=== PATIENT | male | born 1985 | race Caucasian/White ===

== ENCOUNTER 2016-07-24 17:32 | Emergency (ER) | payer SELFPAY ==
[2016-07-24 18:01] VITALS: TEMP 98.2; BMI 28.8
[2016-07-24 18:14] LABS: AUTOMATED EOSINOPHIL 2.5 % (0-5); AUTOMATED LYMPH 35.5 % (17-44); MPV 8.7 fL (7.4-10.4)
[2016-07-24 18:20] LABS: RBC/URINE 0-2 (0-2); WBC/URINE 0-2 (0-2)
[2016-07-24 18:23] LABS: LEUKOCYTES/URINE NEG (NEGATIVE); NITRITE/URINE NEG (NEGATIVE); URINE OCCULT BLOOD NEG (NEG/TRACE)
[2016-07-24 18:25] LABS: BLOOD UREA NITROGEN 15 MG/DL (9-20); CALCULATED OSMOLALITY 275 MOs/Kg (270-290); CHLORIDE 104 mEq/L (98-107); GLUCOSE 108 MG/DL (70-99); SODIUM LEVEL 142 mEq/L (137-146)
[2016-07-24] MEDS ORDERED: MORPHINE 4 MG/ML INJECTION IV ONE (19:38)
[2016-07-24] MEDS ORDERED: ONDANSETRON HCL 4 MG/2 ML VIAL IV ONE (19:38)
[2016-07-24] MEDS ORDERED: NS 1,000 ML IV ONE (19:39)
--- NOTE | 2016-07-24 20:25 | DIRPT ---
CLINICAL DATA: Right upper quadrant pain for several weeks EXAM: US ABDOMEN LIMITED - RIGHT UPPER QUADRANT COMPARISON: 01/19/2016 FINDINGS: Gallbladder: No gallstones or wall thickening visualized. No sonographic Lynch sign noted by retirement assistant. Common bile duct: Diameter: 3 mm Liver: Diffusely increased in echogenicity consistent with fatty infiltration. IMPRESSION: Fatty liver. No other focal abnormality is seen. Electronically Signed By: Marvel Stevenson M.D. On: 07/24/2016 20:22
--- NOTE | 2016-07-24 20:38 | EDPRACDOC ---
- General Information Chief Complaint: Abdominal Pain Stated Complaint: ABDOMINAL PAIN, NAUSEA Time Seen by Provider: 07/24/16 19:29 Information Source: Patient Mode Of Arrival: Car Home Medications: Home Medications Ondansetron [Zofran Odt] 4 mg PO Q6H PRN #20 tab.rapdis 07/24/16 Oxycodone Immediate Release [Oxycodone Immediate Release (OxyIR)] 5 mg PO Q6H PRN #20 tab 07/24/16 Allergies/Adverse Reactions: Allergies Allergy/AdvReac Type Severity Reaction Status Date / Time No Known Allergies Allergy Verified 07/24/16 18:01 - History of Present Illness Onset: 2 WEEKS HPI: PT PRESENTS WITH 2 WEEK HISTORY OF EPIGASTRIC PAIN THAT RADIATES TO THE RUQ AND THROUGH TO THE BACK AND UP TO THE RIGHT SHOULDER. PT STATES HE HAS HAD NAUSEA FOR THE PAST YEAR. Pain Location: Reports: Epigastric, RUQ Pain Context: Reports: Spontaneous Pain Severity: Mild Pain Quality: Reports: Sharp, Stabbing Pain Radiation: Reports: No Radiation Adult Abdominal History: Denies: Abdominal Surgery, Urolithiasis, Bowel Obstruction, Similar Pain (dx) Modifying Factors: improves with: Nothing Associated Signs & Symptoms: Reports: Nausea Oral Intake: Normal Urinary Output: Normal ED Past Medical History - History Reviewed Yes Nurses notes reviewed and agree except as marked - Patient Medical History Cardiac History: Reports: Hypertension (NOT ON MEDS) GI/ History: Reports: Kidney Stones Musculoskeletal History: Reports: Arthritis (RT LEG) Psychological History: Denies: Depression Systemic History: Denies: Anemia - Family Medical History Reports: Hypertension (DAD), Diabetes (DAD, GRANDPARENTS). Denies: Cancer, Stroke, Cardiac Disorders - Social Medical History Smoking Status: Never smoker EDM Review of Systems - Review of Systems ROS Negative Except as Marked: Yes All systems reviewed and were negative except as marked - Physical Exam Constitutional: Alert (Awake), No apparent distress Oriented to: Time, Person, Place Last recorded Vital Signs: Last Vital Signs Temp 98.2 F 07/24/16 17:58 Pulse 82 07/24/16 17:58 Resp 20 07/24/16 17:58 BP 158/97 07/24/16 17:58 Pulse Ox 97 07/24/16 17:58 Oxygen Pulse Oxygen Saturation 97 O2 Device Room Air Oxygen Flow Rate Fraction of Inspired Oxygen ( FIO2) - HEENT Head: Normal ( normocephalic) Eye Exam: Normal (PERRL, EOMI, Sclera white) Oropharynx: Normal (Pharynx:Moist without exudate,Gums-no swelling) Nose: No Symptoms Reported (septum midline) Neck: Normal (FROM, trachea at midline) - Respiratory/Cardiovascular Respiratory: Normal - CTA (BBS clear to auscultation without adventitious sounds ) Cardiovascular: Normal (RRR without murmur, gallop or rub) - GI Auscultation: Normal (NABS) Palpation: Normal (Soft,No rebound or guarding, non distended) Tenderness: Mild, RUQ, Epigastric Lynch's Sign: Negative Rectal Exam: Deferred - Musculoskeletal Back: Normal (Non-Tender) Extremities: Normal (Normal tone, Pulses 2+ No cyanosis or edema, FROM) - Integumentary Skin: Normal, Warm, Dry Lymphatics: Normal (no adenopathy) - Neurologic Memory Impaired: Normal Motor Function: Normal (Normal tone, Pulses 2+ No cyanosis or edema, FROM) Cranial Nerve: Normal (CN II-X11 intact sensation, strength 5/5) Cerebellar: Normal Mood Description: Normal Perception: Normal - Differential Diagnosis Cholecystitis, Cholelithiasis - Results All Results Reviewed and Normal except as Highlighted below: Yes 07/24/16 17:59 07/24/16 17:59 WBC 8.5 xk/uL (3.8-10.8) 07/24/16 17:59 RBC 6.02 xM/uL (4.70-6.10) 07/24/16 17:59 Hgb 16.1 g/dL (14.0-18.0) 07/24/16 17:59 Hct 46.3 % (42-52) 07/24/16 17:59 MCV 77 fL (80-94) L 07/24/16 17:59 MCH 26.8 pg (27-32) L 07/24/16 17:59 MCHC 34.9 g/dl (33-36) 07/24/16 17:59 RDW 13.4 % (11.5-14.5) 07/24/16 17:59 Plt Count 222 xk/uL (130-400) 07/24/16 17:59 MPV 8.7 fL (7.4-10.4) 07/24/16 17:59 Neut % (Auto) 55.0 % (45-76) 07/24/16 17:59 Lymph % (Auto) 35.5 % (17-44) 07/24/16 17:59 [place] % (Auto) 6.0 % (3-10) 07/24/16 17:59 Eos % (Auto) 2.5 % (0-5) 07/24/16 17:59 Baso % (Auto) 1.0 % (0-2) 07/24/16 17:59 Absolute Neuts (auto) 4.68 xk/uL (1.7-8.2) 07/24/16 17:59 Absolute Lymphs (auto) 2.98 xk/uL (0.65-4.75) 07/24/16 17:59 Sodium 142 mEq/L (137-146) 07/24/16 17:59 Potassium 4.6 mEq/L (3.5-5.1) 07/24/16 17:59 Chloride 104 mEq/L (98-107) 07/24/16 17:59 Carbon Dioxide 26 mMOL/L (22-33) 07/24/16 17:59 Anion Gap 17 mEq/L (8-16) H 07/24/16 17:59 BUN 15 MG/DL (9-20) 07/24/16 17:59 Creatinine 0.90 MG/DL (0.66-1.25) 07/24/16 17:59 Estimated GFR (MDRD) > 60 mL/min (>=60) 07/24/16 17:59 Glucose 108 MG/DL (70-99) H 07/24/16 17:59 Calculated Osmolality 275 MOs/Kg (270-290) 07/24/16 17:59 Calcium 9.0 MG/DL (8.4-10.2) 07/24/16 17:59 Total Bilirubin 0.8 MG/DL (0.2-1.3) 07/24/16 17:59 AST 38 IU/L (17-59) 07/24/16 17:59 ALT 41 IU/L (21-72) 07/24/16 17:59 Alkaline Phosphatase 88 IU/L (38-126) 07/24/16 17:59 Total Protein 8.0 G/DL (6.3-8.2) 07/24/16 17:59 Albumin 4.4 G/DL (3.5-5.0) 07/24/16 17:59 Urine Color Yellow 07/24/16 17:59 Urine Clarity Cldy 07/24/16 17:59 Urine pH 5.0 (5.0-8.0) 07/24/16 17:59 Ur Specific Cut[place] 1.025 (1.003-1.035) 07/24/16 17:59 Urine Protein Neg (NEG/TRACE) 07/24/16 17:59 Urine Glucose (UA) Neg (NEGATIVE) 07/24/16 17:59 Urine Ketones Neg (NEGATIVE) 07/24/16 17:59 Urine Occult Blood Neg (NEG/TRACE) 07/24/16 17:59 Urine Nitrite Neg (NEGATIVE) 07/24/16 17:59 Urine Bilirubin Neg (NEGATIVE) 07/24/16 17:59 Urine Urobilinogen 0.2 MG/DL (0-1) 07/24/16 17:59 Ur Leukocyte Esterase Neg (NEGATIVE) 07/24/16 17:59 Urine RBC 0-2 (0-2) 07/24/16 17:59 Urine WBC 0-2 (0-2) 07/24/16 17:59 Urine Bacteria Few (NEG/FEW) 07/24/16 17:59 Hyaline Casts 0-2 (0-2) 07/24/16 17:59 Urine Mucus Occ (NEG/OCC) 07/24/16 17:59 Lab Results 07/24/16 07/24/16 07/24/16 17:59 17:59 17:59 WBC 8.5 RBC 6.02 Hgb 16.1 Hct 46.3 MCV 77 L MCH 26.8 L MCHC 34.9 RDW 13.4 Plt Count 222 MPV 8.7 Neut % (Auto) 55.0 Lymph % (Auto) 35.5 [place] % (Auto) 6.0 Eos % (Auto) 2.5 Baso % (Auto) 1.0 Absolute Neuts (auto) 4.68 Absolute Lymphs (auto) 2.98 Sodium 142 Potassium 4.6 Chloride 104 Carbon Dioxide 26 Anion Gap 17 H BUN 15 Creatinine 0.90 Estimated GFR (MDRD) > 60 Glucose 108 H Calculated Osmolality 275 Calcium 9.0 Total Bilirubin 0.8 AST 38 ALT 41 Alkaline Phosphatase 88 Total Protein 8.0 Albumin 4.4 Urine Color Yellow Urine Clarity Cldy Urine pH 5.0 Ur Specific Cutler 1.025 Urine Protein Neg Urine Glucose (UA) Neg Urine Ketones Neg Urine Occult Blood Neg Urine Nitrite Neg Urine Bilirubin Neg Urine Urobilinogen 0.2 Ur Leukocyte Esterase Neg Urine RBC 0-2 Urine WBC 0-2 Urine Bacteria Few Hyaline Casts 0-2 Urine Mucus Occ Decision Time to Discharge: 20:35 - Departure Disposition: Home Condition: Stable Final Diagnosis: Abdominal pain Instructions: Acute Abdominal Pain (ED) Education/Counseling Given To: Patient Education/Counseling Given Regarding: Diagnosis, Treatment, Prognosis, Follow Up Referrals: Tyree Rai MD [Staff Physician] - One Week Rob Cunningham MD [Staff Provider No Admit] - One Week Prescriptions: Ondansetron [Zofran Odt] 4 mg PO Q6H PRN #20 tab.rapdis PRN Reason: Nausea/Vomiting Oxycodone Immediate Release [Oxycodone Immediate Release (OxyIR)] 5 mg PO Q6H PRN #20 tab PRN Reason: Pain Additional Instructions: PLEASE FOLLOW UP WITH DR CUNNINGHAM FOR FURTHER TESTING. ALSO MAKE A FOLLOW UP APPOINTMENT WITH YOUR PCP FOR A HIDA SCAN OF YOUR GALLBLADDER FOR FUNCTION. RETURN TO THE ED FOR WORSENING SYMPTOMS OR CONCERNS.
[2016-07-24] MEDS ORDERED: OXYCODONE HCL 5 MG TABLET PO ONE (20:44)
[2016-07-24 21:09] VITALS: BP 151/79; PULSE 95
== END 2016-07-24 21:08 | disposition home or self-care (01) ==
LOC: ED 17:32
DX: R10.9 Unspecified abdominal pain (principal)
CPT/HCPCS: 36415; 76705; 80053; 81001; 85025; 96374; 96375; 99283; J2270; J2405; J3490

== ENCOUNTER 2016-08-06 20:54 | Emergency (ER) | payer SELFPAY ==
[2016-08-06 20:57] VITALS: TEMP 98.4
[2016-08-06 21:52] VITALS: BMI 28.0
[2016-08-06 22:07] LABS: AUTOMATED EOSINOPHIL 1.8 % (0-5); AUTOMATED MONOCYTE 7.2 % (3-10); MPV 8.6 fL (7.4-10.4)
[2016-08-06 22:15] LABS: BLOOD UREA NITROGEN 14 MG/DL (9-20); CALCIUM 9.6 MG/DL (8.4-10.2); CALCULATED OSMOLALITY 276 MOs/Kg (270-290); CHLORIDE 104 mEq/L (98-107); GLUCOSE 104 mg/dL (70-99); SODIUM LEVEL 143 mEq/L (137-146); TOTAL PROTEIN 8.1 G/DL (6.3-8.2)
[2016-08-07] MEDS ORDERED: ONDANSETRON HCL 4 MG ODT TAB PO ONE (00:03)
[2016-08-07] MEDS ORDERED: OXYCODONE HCL 5 MG TABLET PO ONE (00:03)
--- NOTE | 2016-08-07 00:05 | EDPRACDOC ---
- General Information Chief Complaint: Abdominal Pain Stated Complaint: ABD PAIN, N/V Time Seen by Provider: 08/06/16 23:58 Mode Of Arrival: Car Home Medications: Home Medications Oxycodone Immediate Release [Oxycodone Immediate Release (OxyIR)] 5 mg PO Q6H PRN #20 tab 07/24/16 Promethazine [Phenergan] 25 mg PO Q6-8H PRN #20 tab 07/24/16 Promethazine [Phenergan] 25 mg PO Q8H PRN #30 tab 08/07/16 Ranitidine [Zantac] 150 mg PO DAILY #30 tablet 08/07/16 Tramadol HCl 50 mg PO Q6 PRN #14 tablet 08/07/16 Allergies/Adverse Reactions: Allergies Allergy/AdvReac Type Severity Reaction Status Date / Time No Known Allergies Allergy Verified 08/06/16 21:52 - History of Present Illness Onset: 1 WEEK HPI: C/o RUQ and epigastric pain x 1 week with N/V. Seen here for same sx 07/24/16 where he stated that sx had been going on for 2 weeks. Also c/o nausea x 1 yr. Pt was advised to follow up with Dr Cunningham, and to arrange HIDA with pcp. Pt states he has not been bale to afford to do so. Denies, fever, cp, sob, diarrhea , changes in urine or BM. Med hx = HTN. Surgical hx = none. US Gall bladder 07/24 was NEG for GB with fatty liver noted. Pain Location: Reports: Epigastric, RUQ Pain Context: Reports: Spontaneous Pain Severity: Moderate Pain Quality: Reports: Cramping Pain Radiation: Reports: No Radiation Adult Abdominal History: Denies: Urolithiasis, Bowel Obstruction Modifying Factors: improves with: Nothing Associated Signs & Symptoms: Reports: Nausea, Vomiting Oral Intake: Normal Urinary Output: Normal ED Past Medical History - History Reviewed Yes Nurses notes reviewed and agree except as marked - Patient Medical History Cardiac History: Reports: Hypertension (NOT ON MEDS) GI/ History: Reports: Kidney Stones Musculoskeletal History: Reports: Arthritis (RT LEG) Psychological History: Denies: Depression Systemic History: Denies: Anemia - Family Medical History Reports: Hypertension (DAD), Diabetes (DAD, GRANDPARENTS). Denies: Cancer, Stroke, Cardiac Disorders - Social Medical History Smoking Status: Never smoker EDM Review of Systems - Review of Systems ROS Negative Except as Marked: Yes All systems reviewed and were negative except as marked Gastrointestinal: Nausea, Pain, Vomiting - Physical Exam Constitutional: No apparent distress, Alert Oriented to: Time, Person, Place Last recorded Vital Signs: Last Vital Signs Temp 98.4 F 08/06/16 20:57 Pulse 75 08/07/16 01:29 Resp 18 08/07/16 01:29 BP 130/84 08/07/16 01:29 Pulse Ox 97 08/07/16 01:29 Oxygen Pulse Oxygen Saturation 97 O2 Device Room Air Oxygen Flow Rate Fraction of Inspired Oxygen ( FIO2) - HEENT Head: Normal Eye Exam: negative: Conjunctival Injection, Scleral Icterus Oropharynx: negative: Drooling TMJ: Normal Nose: No Symptoms Reported Neck: Normal - Respiratory/Cardiovascular Respiratory: Normal - CTA Cardiovascular: Normal - GI Auscultation: Normal Palpation: Normal Tenderness: Mild, RUQ, Epigastric Lynch's Sign: Positive (mild) - Musculoskeletal Back: Normal Extremities: Normal - Integumentary Skin: Normal - Neurologic Mood Description: Normal Thought: Coherent Perception: Normal - Results 08/06/16 21:55 08/06/16 21:55 WBC 7.1 xk/uL (3.8-10.8) 08/06/16 21:55 RBC 5.83 xM/uL (4.70-6.10) 08/06/16 21:55 Hgb 15.6 g/dL (14.0-18.0) 08/06/16 21:55 Hct 44.4 % (42-52) 08/06/16 21:55 MCV 76 fL (80-94) L 08/06/16 21:55 MCH 26.7 pg (27-32) L 08/06/16 21:55 MCHC 35.1 g/dl (33-36) 08/06/16 21:55 RDW 13.4 % (11.5-14.5) 08/06/16 21:55 Plt Count 214 xk/uL (130-400) 08/06/16 21:55 MPV 8.6 fL (7.4-10.4) 08/06/16 21:55 Neut % (Auto) 45.0 % (45-76) 08/06/16 21:55 Lymph % (Auto) 44.0 % (17-44) 08/06/16 21:55 [place] % (Auto) 7.2 % (3-10) 08/06/16 21:55 Eos % (Auto) 1.8 % (0-5) 08/06/16 21:55 Baso % (Auto) 2.0 % (0-2) 08/06/16 21:55 Absolute Neuts (auto) 3.20 xk/uL (1.7-8.2) 08/06/16 21:55 Absolute Lymphs (auto) 3.12 xk/uL (0.65-4.75) 08/06/16 21:55 Sodium 143 mEq/L (137-146) 08/06/16 21:55 Potassium 4.0 mEq/L (3.5-5.1) 08/06/16 21:55 Chloride 104 mEq/L (98-107) 08/06/16 21:55 Carbon Dioxide 28 mMOL/L (22-33) 08/06/16 21:55 Anion Gap 15 mEq/L (8-16) 08/06/16 21:55 BUN 14 MG/DL (9-20) 08/06/16 21:55 Creatinine 0.90 MG/DL (0.66-1.25) 08/06/16 21:55 Estimated GFR (MDRD) > 60 mL/min (>=60) 08/06/16 21:55 Glucose 104 mg/dL (70-99) H 08/06/16 21:55 Calculated Osmolality 276 MOs/Kg (270-290) 08/06/16 21:55 Calcium 9.6 MG/DL (8.4-10.2) 08/06/16 21:55 Total Bilirubin 0.8 MG/DL (0.2-1.3) 08/06/16 21:55 AST 32 IU/L (17-59) 08/06/16 21:55 ALT 46 IU/L (21-72) 08/06/16 21:55 Alkaline Phosphatase 84 IU/L (38-126) 08/06/16 21:55 Total Protein 8.1 G/DL (6.3-8.2) 08/06/16 21:55 Albumin 4.8 G/DL (3.5-5.0) 08/06/16 21:55 Lipase 103 U/L (23-300) 08/06/16 21:55 Lab Results 08/06/16 08/06/16 08/06/16 21:55 21:55 21:55 WBC 7.1 RBC 5.83 Hgb 15.6 Hct 44.4 MCV 76 L MCH 26.7 L MCHC 35.1 RDW 13.4 Plt Count 214 MPV 8.6 Neut % (Auto) 45.0 Lymph % (Auto) 44.0 [place] % (Auto) 7.2 Eos % (Auto) 1.8 Baso % (Auto) 2.0 Absolute Neuts (auto) 3.20 Absolute Lymphs (auto) 3.12 Sodium 143 Potassium 4.0 Chloride 104 Carbon Dioxide 28 Anion Gap 15 BUN 14 Creatinine 0.90 Estimated GFR (MDRD) > 60 Glucose 104 H Calculated Osmolality 276 Calcium 9.6 Total Bilirubin 0.8 AST 32 ALT 46 Alkaline Phosphatase 84 Total Protein 8.1 Albumin 4.8 Lipase 103 Decision Time to Discharge: 01:09 - Departure Disposition: Home Condition: Stable Final Diagnosis: Biliary colic Instructions: Non-pharmacological Pain Management Therapies for Adults (GEN), Abdominal Pain (ED) Education/Counseling Given To: Patient Education/Counseling Given Regarding: Diagnosis, Treatment, Prognosis, Follow Up Referrals: None,No Provider [Primary Care Provider] - One Week Prescriptions: New Promethazine [Phenergan] 25 mg PO Q8H PRN #30 tab PRN Reason: Nausea/Vomiting Ranitidine [Zantac] 150 mg PO DAILY #30 tablet Tramadol HCl 50 mg PO Q6 PRN #14 tablet PRN Reason: Pain No Action Oxycodone Immediate Release [Oxycodone Immediate Release (OxyIR)] 5 mg PO Q6H PRN #20 tab PRN Reason: Pain Promethazine [Phenergan] 25 mg PO Q6-8H PRN #20 tab PRN Reason: Nausea/Vomiting Additional Instructions: Follow up with DR Cunningham and arrange with Primary care for HIDA scan. Return to ED for any new or worsening symptoms.
[2016-08-07 01:31] VITALS: BP 130/84; PULSE 75
== END 2016-08-07 01:29 | disposition home or self-care (01) ==
LOC: ED 20:54
DX: K80.50 Calculus of bile duct without cholangitis or cholecystitis without obstruction (principal)
CPT/HCPCS: 36415; 80053; 83690; 85025; 99283; J3490